=== PATIENT | female | born 1980 | race Caucasian/White ===

== ENCOUNTER → 2020-05-29 13:17 | Outpatient (CLI) | payer OTHER, SELFPAY ==
[2020-05-30 03:54] LABS: Testosterone 55.6 ng/dL (5.71-77.0)
[2020-06-07 00:13] LABS: Estrogen 226 pg/mL (.)
== END ==
PROVIDERS: PCP Physician Assistant Medical; Visit Provider Physician Assistant Medical
DX: F64.9 Gender identity disorder, unspecified (principal)
CPT/HCPCS: 82672; 84403

== ENCOUNTER → 2020-11-28 12:03 | Outpatient (CLI) | payer OTHER, SELFPAY ==
[2020-11-28 13:26] LABS: Alanine Aminotransferase 10 IU/L (<35); Albumin 4.3 g/dL (3.5-5.0); Albumin Globulin Ratio 1.7 (1.0-2.8); Alkaline Phosphatase 36 U/L (38-126); Aspartate Aminotransferase 19 IU/L (14-36); Bilirubin Total 1.2 mg/dL (0.2-1.3); Bilirubin Unconjugated 1.3 mg/dL (0.0-1.1); Cholesterol 198 mg/dL (140-199); Globulin 2.6 g/dL (1.7-4.1); HDL Cholesterol 42 mg/dL (40-60); HEMOLYSIS < 15 (0-50); LDL Cholesterol Calculated 134 mg/dL (<100); Total Protein 6.9 g/dL (6.3-8.2); Triglycerides 109 mg/dL (35-150)
[2020-11-28 13:55] LABS: Testosterone 580 ng/dL (5.71-77.0)
== END ==
PROVIDERS: PCP Physician Assistant Medical; Referring Provider Internal Medicine; Visit Provider Internal Medicine
DX: F64.9 Gender identity disorder, unspecified (principal)
CPT/HCPCS: 36415; 80061; 80076; 84403

== ENCOUNTER 2021-06-20 23:45 | Emergency (ER) | payer OTHER, SELFPAY ==
[2021-06-21] VITALS: BP 142/70; PULSE 60; RESP 18; TEMP 36.6; O2SAT 98
--- NOTE | 2021-06-21 00:24 | ED.SKABFB ---
HPI - Skin/Abscess/Foreign Bdy General Chief complaint: Skin/Abscess/Foreign Body Stated complaint: mouth/left side jaw Time Seen by Provider: 06/20/21 23:58 Source: patient Mode of arrival: Ambulatory Limitations: no limitations History of Present Illness HPI narrative: 41-year-old patient who is here for evaluation of swelling to left-sided jaw. Patient reports that he recently had his wisdom teeth removed. That was several weeks ago. Today started noticing pain in the left side of the jaw and discomfort with the area. No problems breathing. No problems tolerating secretions. Related Data Home Medications Medication Instructions Recorded Confirmed sertraline 25 mg tablet 25 mg PO DAILY 05/23/20 08/29/20 Previous Rx's Medication Instructions Recorded penicillin V potassium 500 mg 500 mg PO QID 7 Days #28 tab 06/21/21 tablet Allergies Allergy/AdvReac Type Severity Reaction Status Date / Time No Known Drug Allergies Allergy Verified 08/29/20 09:08 Review of Systems Constitutional Constitutional: Denies fever(s) ENT Ears, Nose, Mouth, and Throat: Reports system reviewed and no additional complaints, except as documented and Reports as per HPI Respiratory Respiratory: Reports system reviewed and no additional complaints, except as documented Integumentary/Breasts Skin/Breast: Denies rash Patient History Medical History Anxiety Chicken pox (~1987) Depression Gender dysphoria H/O vitamin D deficiency History of fall Surgical History (Updated 08/13/20 @ 10:43 by Yodit Hoover CMA) History of lumbar laminectomy Family History (Updated 06/06/20 @ 22:19 by Luisa Baker) Father Hypertension Mother Cancer Mental health problem Grandfather Stroke Grandmother Hypertension Thyroid condition Social History Smoking Status: Former smoker quit status: quit date established alcohol intake: current additional social history: QUIT DATE SMOKIN02/15/11 3.0 STANDARD DRINKS OF ALCOHOL/WEEK Smoking Status: Former smoker Substance Use Type: does not use Exam Initial Vital Signs Initial Vital Signs: Vital Signs Temperature 98 F 06/21/21 00:00 Pulse Rate 60 06/21/21 00:00 Respiratory Rate 18 06/21/21 00:00 Blood Pressure 142/70 H 06/21/21 00:00 Pulse Oximetry 98 06/21/21 00:00 HENMT Head: normal to inspection and normocephalic Ears: TM's normal bilaterally Mouth: oral mucosae normal, lip normal, tongue normal and moist mucous membranes Other HENMT:: Patient does have soft fluctuance along the left mandibular ridge. Neck Lymphatic: No lymphadenopathy Resp Effort & Inspection: normal respiratory effort Skin General: no rashes or lesions noted Neuro General: patient alert and patient awake Course Orders Ordered: Discontinued Medications Hydrocodone Bitart/Acetaminophen (Hydrocodone/Acet 5/325 Prepack) 1 bottle MISC SEEINSTR ONE Stop: 06/21/21 00:25 Last Admin: 06/21/21 00:31 Dose: 1 bottle Documented by: MIREYA Penicillin V Potassium (Penicillin Vk 250 Mg Tablet) 500 mg PO NOW ONE Stop: 06/21/21 00:25 Last Admin: 06/21/21 00:31 Dose: 500 mg Documented by: MIREYA Vital Signs Vital signs: Vital Signs - 8 hr 06/21/21 00:00 Temperature 98 F Pulse Rate 60 Respiratory Rate 18 Blood Pressure 142/70 H Pulse Oximetry 98 MDM - Skin/Abscess/Foreign Bdy MDM Narrative Medical decision making narrative: Patient's dentition is relatively unremarkable without any definitive sign of caries. No respiratory distress. Does have fullness along the left mandibular region. Oral mucosa does not show any definitive abscess. Plan is to start the patient on antibiotics. He will contact the oral surgeon who he already has a relationship with for a follow-up. He was given return precautions. Expressed understanding and agreement. Discharge Plan Departure Patient Disposition: Home Clinical Impression: Dental abscess Instructions: DI for Tooth Abscess Activity Restrictions/Additional Instructions: I recommend that you take the antibiotics as directed. On Wednesday morning contact your oral surgeon's office for a follow-up. You will also likely need to follow-up with your dentist. Return to the emergency department for any new or worsening symptoms. Prescriptions: New penicillin V potassium 500 mg tablet 500 mg PO QID 7 Days Qty: 28 0RF No Action sertraline 25 mg tablet 25 mg PO DAILY 0RF Referrals: Flor Cornejo PA-C [Primary Care Provider] -
[2021-06-21] MEDS: PENICILLIN VK 250 MG TABLET 500 MG PO (00:31)
[2021-06-21] MEDS: HYDROCODONE/ACET 5/325 PREPACK 1 BOTTLE MISC (00:31)
== END 2021-06-21 00:36 | disposition home or self-care (01) ==
PROVIDERS: Emergency Provider Emergency Medicine; PCP Physician Assistant Medical
DX: K04.7 Periapical abscess without sinus (principal)
CPT/HCPCS: 99283

== ENCOUNTER → 2021-12-18 11:30 | Outpatient (CLI) | payer OTHER, MEDICAID, SELFPAY ==
[2021-12-18 19:33] LABS: Alanine Aminotransferase 17 IU/L (<35); Albumin 4.5 g/dL (3.5-5.0); Albumin Globulin Ratio 1.6 (1.0-2.8); Alkaline Phosphatase 45 U/L (38-126); Aspartate Aminotransferase 20 IU/L (14-36); Bilirubin Total 1.8 mg/dL (0.2-1.3); Bilirubin Unconjugated 1.6 mg/dL (0.0-1.1); Cholesterol 190 mg/dL (140-199); Globulin 2.8 g/dL (1.7-4.1); HDL Cholesterol 36 mg/dL (40-60); HEMOLYSIS < 15 (0-50); LDL Cholesterol Calculated 135 mg/dL (<100); Total Protein 7.3 g/dL (6.3-8.2); Triglycerides 96 mg/dL (35-150); VLDL Cholesterol Calculated 19 mg/dL (2-30)
[2021-12-18 20:01] LABS: Testosterone 443 ng/dL (5.71-77.0)
== END ==
PROVIDERS: Internal Medicine; PCP Physician Assistant Medical
DX: F64.0 Transsexualism (principal)
CPT/HCPCS: 80061; 80076; 84403

== ENCOUNTER → 2022-01-24 11:18 | Outpatient (CLI) | payer OTHER, MEDICAID, SELFPAY ==
--- NOTE | 2022-01-24 11:19 | DI.MG.S_ITS ---
BILATERAL DIGITAL SCREENING MAMMOGRAM 3D/2D WITH CAD: 01/24/2022 CLINICAL: Baseline exam. Routine screening. No prior exams were available for comparison. Both breasts are heterogeneously dense, which may obscure small masses (category c / 51-75% glandular tissue). Current study was also evaluated with a Computer Aided Detection (CAD) system. There is an oval equal density focal asymmetry with an indistinct margin in the left breast at 5 o'clock middle depth. No other significant masses, calcifications, or other findings are seen in either breast. IMPRESSION: INCOMPLETE: NEEDS ADDITIONAL IMAGING EVALUATION The oval equal density focal asymmetry in the left breast is indeterminate. Mediolateral and spot compression views as well as additional views with possible ultrasound are recommended. Based on the Tyrer Cuzick model (a risk assessment model) the patient's lifetime risk is 13.0% and her 10 year risk is 1.5%. According to the ACR, ACS, and NCCN guidelines, an annual breast MRI exam along with mammogram is recommended if the patient's lifetime risk is 20% or greater. This exam was interpreted at Station ID: Unknown. NOTE: For mammograms, a report in lay terms will be sent to the patient. Approximately 15% of breast malignancies will not be visualized mammographically. In the management of a palpable breast mass, a negative mammogram must not discourage biopsy of a clinically suspicious lesion. Electronically Signed By: Wan davidson/edmond:01/26/2022 02:22:54 Entry: - 01/26/2022 14:54:35 letter sent: Additional Imaging Needed ACR BI-RADS Category 0: Incomplete 3340F
== END ==
PROVIDERS: PCP Physician Assistant Medical; Referring Provider Physician Assistant Medical; Visit Provider Physician Assistant Medical
DX: Z12.31 Encounter for screening mammogram for malignant neoplasm of breast (principal)
CPT/HCPCS: 77063; 77067

== ENCOUNTER → 2022-01-28 10:45 | Outpatient (CLI) | payer OTHER, MEDICAID, SELFPAY ==
--- NOTE | 2022-01-28 10:50 | DI.US.S_ITS ---
ULTRASOUND OF LEFT BREAST: 01/28/2022 CLINICAL: Patient returns today to evaluate a focal asymmetry in the left breast. Pre-elective bilateral mastectomy work-up. Comparison is made to exams dated: 01/28/2022 mammogram and 01/24/2022 mammogram - [facility]. Color flow and real-time ultrasound of the left breast were performed. Niño scale images of the real-time examination were reviewed. No significant abnormalities were seen sonographically in the left breast. IMPRESSION: NEGATIVE There is no sonographic evidence of malignancy. There is no abnormality seen in the left breast to correspond with the mammography finding which likely represents normal fibroglandular tissue. Findings and recommendations were conveyed to the patient during today's evaluation. This exam was interpreted at Station ID: [id number]. Electronically Signed By: Maxwell Gallagher M.D. aty/:01/28/2022 11:51:00 Ultrasound BI-RADS: 1 Negative
--- NOTE | 2022-01-28 10:50 | DI.MG.S_ITS ---
UNILATERAL LEFT DIGITAL DIAGNOSTIC MAMMOGRAM 3D/2D WITH ADDITIONAL VIEWS: 01/28/2022 CLINICAL: Additional evaluation requested from prior study. Comparison is made to exam dated: 01/24/2022 mammogram - [facility]. The left breast is heterogeneously dense, which may obscure small masses (category c / 51-75% glandular tissue). The previously described oval equal density focal asymmetry with an indistinct margin in the left breast at 5 o'clock anterior depth is no longer seen and resembles fibroglandular tissue. This likely represents summation artifact. No other significant masses or calcifications are seen in the breast. IMPRESSION: INCOMPLETE: NEEDS ADDITIONAL IMAGING EVALUATION Given patient is scheduled for upcoming breast surgery, an ultrasound is recommended to confirm the no longer seen oval equal density focal asymmetry in the left breast anterior depth. This is scheduled to immediately follow this exam. Based on the Tyrer Cuzick model (a risk assessment model) the patient's lifetime risk is 13.0% and her 10 year risk is 1.5%. According to the ACR, ACS, and NCCN guidelines, an annual breast MRI exam along with mammogram is recommended if the patient's lifetime risk is 20% or greater. This exam was interpreted at Station ID: [id number]. NOTE: For mammograms, a report in lay terms will be sent to the patient. Approximately 15% of breast malignancies will not be visualized mammographically. In the management of a palpable breast mass, a negative mammogram must not discourage biopsy of a clinically suspicious lesion. Electronically Signed By: Maxwell Gallagher M.D. aty/:01/28/2022 11:17:55 ACR BI-RADS Category 0: Incomplete 3340F
== END ==
PROVIDERS: PCP Physician Assistant Medical; Referring Provider Physician Assistant Medical; Visit Provider Physician Assistant Medical
DX: R92.8 Other abnormal and inconclusive findings on diagnostic imaging of breast (principal)
CPT/HCPCS: 76642; 77065; G0279

== ENCOUNTER → 2022-02-17 11:06 | Outpatient (CLI) | payer OTHER, MEDICAID, SELFPAY ==
[2022-02-17 20:38] LABS: Free T3, Triiodothyronine Free 3.52 pg/mL (2.77-5.27)
[2022-02-19 23:23] LABS: Vitamin B12 407 pg/mL (239-931)
== END ==
PROVIDERS: PCP Physician Assistant Medical; Visit Provider Physician Assistant Medical
DX: G43.109 Migraine with aura, not intractable, without status migrainosus (principal); R53.83 Other fatigue; R79.89 Other specified abnormal findings of blood chemistry
CPT/HCPCS: 82607; 84443; 84481

== ENCOUNTER → 2023-08-05 10:30 | Outpatient (CLI) | payer OTHER, MEDICAID, SELFPAY ==
[2023-08-05 19:47] LABS: Add Manual Diff / Slide Review NO; Basophils Absolute Auto 0 /uL (0-100); Basophils Percent Auto 0.5 % (0-2); Eosinophils Absolute Auto 100 /uL (0-450); Eosinophils Percent Auto 1.9 % (2-4); Hematocrit 43.2 % (36-46); Hemoglobin 15.2 g/dL (12.0-16.0); Lymphocytes Absolute Auto 2000 /uL (1100-4500); Lymphocytes Percent Auto 37.4 % (25-40); Mean Corpuscular HGB Conc 35.1 % (30-36); Mean Corpuscular Hemoglobin 32.2 PG (26-34); Mean Corpuscular Volume 91.6 fL (80-100); Monocytes Absolute Auto 500 /uL (0-900); Monocytes Percent Auto 8.9 % (3-14); Neutrophils Absolute Auto 2700 /uL (1500-7000); Neutrophils Percent Auto 51.3 % (50-75); Platelet Count 251 X10^3/uL (150-400); Red Blood Cell Count 4.71 X10^6/uL (4.0-5.2); Red Cell Distribution Width 12.6 % (11.6-14.8); White Blood Cell Count 5.2 X10^3/uL (4.5-11.0)
[2023-08-05 19:55] LABS: Alanine Aminotransferase 18 IU/L (<35); Albumin 4.7 g/dL (3.5-5.0); Albumin Globulin Ratio 1.5 (1.0-2.8); Alkaline Phosphatase 61 U/L (38-126); Aspartate Aminotransferase 86 IU/L (14-36); BUN Creatinine Ratio 16.2 (6-22); Bilirubin Total 1.9 mg/dL (0.2-1.3); Blood Urea Nitrogen 11 mg/dL (7-17); Calcium 9.5 mg/dL (8.4-10.2); Carbon Dioxide 23 mmol/L (22-32); Chloride 110 mmol/L (98-107); Estimated Glomerular Filt Rate > 60 mL/min (>60); Globulin 3.1 g/dL (1.7-4.1); Glucose 99 mg/dL (70-100); HEMOLYSIS 20 (0-50); HEMOLYSIS 31 (0-50); Iron 205 ug/dL (37-170); Potassium 3.9 mmol/L (3.4-5.1); Sodium 138 mmol/L (137-145); Total Protein 7.8 g/dL (6.3-8.2)
[2023-08-05 19:57] LABS: Cholesterol 243 mg/dL (140-199); HDL Cholesterol 46 mg/dL (40-60); LDL Cholesterol Calculated 169 mg/dL (<100); Triglycerides 140 mg/dL (35-150)
[2023-08-05 20:08] LABS: Total Iron Binding Capacity 263 ug/dL (265-497); Transferrin 200 mg/dL (206-381)
[2023-08-05 20:20] LABS: Percent Iron Saturation 78 % (15-50)
[2023-08-06 02:27] LABS: HIV 1 & 2 Ab/Ag 4th Gen Combo NEGATIVE (NEGATIVE); Hep C Virus Ab w/Reflex Quant NEGATIVE s/c (NEGATIVE)
[2023-08-06 09:57] LABS: Ferritin 145 ng/mL (6-137)
[2023-08-07 09:36] LABS: HSV 2 IGG AB < 0.91 index (0.00-0.90); HSV1IGG < 0.91 index (0.00-0.90)
[2023-08-08 08:08] LABS: RPR Screen Non Reactive (Non Reactive)
[2023-08-12 09:12] LABS: Percent Free Testosterone 3.13 % (0.50-2.80); Testosterone Free 20.99 ng/dL (0.10-0.85); Testosterone Total 670.6 ng/dL (.)
== END ==
PROVIDERS: PCP Physician Assistant Medical; Visit Provider Physician Assistant Medical
DX: Z12.11 Encounter for screening for malignant neoplasm of colon (principal); Z13.6 Encounter for screening for cardiovascular disorders; R00.1 Bradycardia, unspecified; I10 Essential (primary) hypertension; F32.9 Major depressive disorder, single episode, unspecified; F41.9 Anxiety disorder, unspecified; R53.83 Other fatigue; F64.0 Transsexualism; R79.89 Other specified abnormal findings of blood chemistry; Z20.2 Contact with and (suspected) exposure to infections with a predominantly sexual mode of transmission; Z87.890 Personal history of sex reassignment
CPT/HCPCS: 80053; 80061; 82728; 83540; 83550; 84402; 84403; 84443; 85025; 86592; 86695; 86696; 86803; 87389

== ENCOUNTER → 2023-09-23 11:36 | Outpatient (CLI) | payer OTHER, MEDICAID, SELFPAY ==
--- NOTE | 2023-09-23 11:38 | DI.US.S_ITS ---
PROCEDURE: US PERIPH VENOUS LOW EXTREM RT INDICATIONS: CALF PAIN TECHNIQUE: Real-time imaging, as well as color and pulse Doppler interrogation, were performed of the lower extremity deep veins from the inguinal ligament to the popliteal fossa, with documentation of the visualized calf veins. COMPARISON: [facility], US, US ABDOMEN COMPLETE, 09/23/2023, 12:04. FINDINGS: The common femoral, femoral, popliteal, and the visualized calf veins are normally compressible, and free of intraluminal thrombus. Color and pulse Doppler demonstrate normal phasic intraluminal flow. There is normal augmentation response to distal compression maneuver. IMPRESSION: No findings of lower extremity deep venous thrombosis. Dictated by: Kenny Tesfaye M.D. on 09/23/2023 at 12:09 Approved by: Kenny Tesfaye M.D. on 09/23/2023 at 12:10
== END ==
PROVIDERS: PCP Physician Assistant Medical; Referring Provider Physician Assistant Medical; Visit Provider Physician Assistant Medical
DX: M79.661 Pain in right lower leg (principal)
CPT/HCPCS: 93971

== ENCOUNTER → 2023-09-23 11:39 | Outpatient (CLI) | payer SELFPAY ==
--- NOTE | 2023-09-23 11:40 | DI.US.S_ITS ---
PROCEDURE: US ABDOMEN COMPLETE INDICATIONS: HYPERBILLIRUBIN / HIGH AST TECHNIQUE: Real-time scanning was performed of the abdominal and retroperitoneal organs, with image documentation. COMPARISON: [facility], US, US PERIPH VENOUS LOW EXTREM RT, 09/23/2023, 12:20. FINDINGS: Liver: Liver is normal in size and homogeneous in echotexture. The liver echogenicity is within normal limits. Gallbladder: No findings of gallstones or sludge are seen. The gallbladder wall is not thickened, measuring 3 mm or less. No specific pericholecystic fluid is seen. The sonographic Rodriguez sign is negative. Biliary ducts: Intrahepatic bile ducts are non-dilated. Extrahepatic bile duct caliber measures 3 mm. Normal is 6-7 mm or less in diameter, or 10 mm or less post-cholecystectomy. Pancreas: Visualized portions of the pancreas are sonographically normal. Spleen: Spleen is normal in size and homogeneous in echotexture. Kidneys: Kidneys are normal in size and echotexture. Right kidney measures 10.4 cm long; left kidney measures 11 cm long. No hydronephrosis or nephrolithiasis. No solid masses. Aorta: Visualized aorta is normal in caliber at less than 3 cm. Iliacs: Proximal common iliac arteries are normal in caliber at less than 2.5 cm. IVC: Intrahepatic inferior vena cava is patent. Miscellaneous: No free abdominal fluid. IMPRESSION: Normal appearing liver. The gallbladder demonstrates a normal sonographic appearance. No biliary dilatation is seen. Dictated by: Kenny Tesfaye M.D. on 09/23/2023 at 12:43 Approved by: Kenny Tesfaye M.D. on 09/23/2023 at 12:44
== END ==
PROVIDERS: PCP Physician Assistant Medical; Referring Provider Internal Medicine Hematology & Oncology; Visit Provider Internal Medicine Hematology & Oncology
DX: R89.9 Unspecified abnormal finding in specimens from other organs, systems and tissues (principal); M79.661 Pain in right lower leg
CPT/HCPCS: 76700; 93971

== ENCOUNTER → 2024-05-26 13:14 | Outpatient (CLI) | payer OTHER, SELFPAY ==
--- NOTE | 2024-05-26 13:15 | DI.ECHO.S_ITS ---
[facility] : : [id number] : [address] : : [id number] : : Phone: [phone] Echocardiogram Report + + :Name: MICHAEL QUESADA I Study Date: 05/26/2024 Height: 65 in : :[facility] ReadingLocation: Weight: 142 lb : : Gender: Female BSA: 1.7 m2 : :: 1980 Age: 44 yrs BP: 153/104 mmHg: :Reason For Study: HX PATENT DUCTUS ARTERIOSIS : :Ordering Physician: JOLYNN, : :JUANA Performed By: Rafael Glasgow : :Referring: UNSPECIFIED : + + Interpretation Summary The ejection fraction is estimated to be 60-65%. Diastolic parameters suggest probable normal left ventricular diastolic function and normal filling pressures. The right ventricle is normal in size and function. The right ventricular systolic pressure is estimated to be at least 37 mmHg based on an estimated right atrial pressure of 3 mm Hg. The right atrium is moderately dilated. There is mild tricuspid regurgitation. Procedure: A two-dimensional transthoracic echocardiogram with color flow and Doppler was performed. The study quality was technically good. There is no prior echocardiogram noted for this patient. The patient was in normal sinus rhythm during the exam. Left Ventricle: The left ventricle is normal in size. There is normal left ventricular wall thickness. There is no ventricular septal defect visualized. The ejection fraction is estimated to be 60-65%. There are no focal wall motion abnormalities. Diastolic parameters suggest probable normal left ventricular diastolic function and normal filling pressures. Right Ventricle: The right ventricle is normal in size and function. Atria: The left atrial size is normal. The right atrium is moderately dilated. There is no Doppler evidence for an atrial septal defect. Mitral Valve: The mitral valve leaflets appear normal. There is no evidence of stenosis, fluttering, or prolapse. There is trace mitral regurgitation. Aortic Valve: The aortic valve is trileaflet. The aortic valve opens well. There is no aortic valve stenosis. No aortic regurgitation is present. Tricuspid Valve: The tricuspid valve leaflets are thin and pliable. There is mild tricuspid regurgitation. The right ventricular systolic pressure is estimated to be at least 37 mmHg based on an estimated right atrial pressure of 3 mm Hg. Pulmonic Valve: The pulmonic valve is not well visualized. There is no pulmonic valvular regurgitation. Great Vessels: The aortic root is normal size. The dimensions of the ascending aorta are normal. The pulmonary artery is not well visualized, but is probably normal size. The pulmonary artery branches are not well visualized. The IVC is of normal diameter and collapses greater than 50% with a sniff. This suggests a low right atrial pressure of 3 mm Hg. Pericardium/ Pleura There is no pericardial effusion. There is no pleural effusion. MMode/2D Measurements & Calculations LVIDd: 5.3 cm LVOT diam: 1.9 cm LVIDs: 3.5 cm Ao root diam: 2.9 cm FS: 33.1 % asc Aorta Diam: 3.0 cm EPSS: 0.45 cm Ao Arch Diam (Prox Trans): 1.4 cm IVSd: 0.89 cm LVPWd: 0.85 cm LV burns. diameter/BSA (cm/m^2): 3.1 LV sys. diameter/BSA (cm/m^2): 2.1 LA A2 area: 17.0 cm2 RA long axis: 4.7 cm LA A4 area: 17.8 cm2 RA area: 18.8 cm2 LA length (vol): 5.6 cm RA vol: 64.4 ml LA vol: 45.6 ml RA : 37.7 ml/m2 LA vol index: 26.7 ml/m2 IVC diam: 1.5 cm RVD1 (basal): 3.8 cm RVD2 (mid): 2.7 cm TAPSE: 3.0 cm Doppler Measurements & Calculations Ao V2 max: 153.5 cm/sec MV E max brent: 65.6 cm/sec Ao V2 mean: 112.7 cm/sec MV A max brent: 67.1 cm/sec Ao max P.4 mmHg MV E/A: 0.98 Ao mean P.5 mmHg Med Peak E' Brent: 12.7 cm/sec Ao V2 VTI: 35.2 cm E/E' med: 5.2 Lat Peak E' Brent: 12.7 cm/sec E/E' lat: 5.2 E/e' average: 5.2 MV dec time: 0.22 sec TR max brent: 292.4 cm/sec TR max P.2 mmHg PA V2 max: 65.6 cm/sec PA V2 mean: 47.7 cm/sec PA mean P.99 mmHg PA pr(Accel): 7.1 mmHg Reading Physician:04:57 PM
== END ==
PROVIDERS: PCP Physician Assistant Medical; Referring Provider Nurse Practitioner; Visit Provider Nurse Practitioner
DX: Q25.0 Patent ductus arteriosus (principal); I07.1 Rheumatic tricuspid insufficiency
CPT/HCPCS: 93306